=== PATIENT | female | born 1935 | race Two or more races ===

== ENCOUNTER 2017-04-13 20:46 | Emergency (ER) | payer MEDICARE, MEDICAID ==
[~2017-04-13] VITALS: Ht 30.5 cm; Wt 0.5 kg
[~2017-04-13 20:46] MED LIST: ALL300T PO; ASPI-498 OR; ATOR40TA52 PO; ESCI10TA53 PO; LOS50T PO; LOSA100T27 PO; MELO-85 PO; METO25TA5 PO; PANT1INJ3 PO; TRAM50TA2 PO
[2017-04-13] MEDS ORDERED: NOREPINEPHRINE BITARTRATE 250 ML IV ONE (20:53)
[2017-04-13] MEDS ORDERED: NOREPINEPHRINE BITARTRATE 250 ML IV SCH (21:00)
[2017-04-13] MEDS ORDERED: SODIUM BICARBONATE 8.4% INJ 50ML SYRINGE ONE ×2 (21:03→21:15)
[2017-04-13] MEDS ORDERED: EPINEPHrine HCL 1 MG/10 ML SYRG ONE ×2 (21:04→21:36)
[2017-04-13] MEDS ORDERED: AMIODARONE HCL (50 MG/ ML) 3 ML VIAL IV ONE (21:11)
[2017-04-13 21:17] LABS: Allen Test Modified; Base Excess -8.2 mmol/L (-2.0-2.0); Blood COHb 0.1 % (0.5-1.5); Blood MetHb 0.4 % (0.0-1.5); HCO3 22.3 mmol/L (22-26.0); MODE VENT - A/C; O2Hb 92.5 % (94.0-97.0); PCO2 75.6 mmHg (35.0-45.0); PCO2(T) 75.6 mmHg (35.0-45.0); PO2 104.2 mmHg (80.0-100.0); PO2(T) 104.2 mmHg (80.0-100.0); Sample Type Arterial; pH 7.087 (7.350-7.450)
[2017-04-13 21:29] VITALS: BP 116/66
[2017-04-13] MEDS ORDERED: DEXTROSE 10% 1,000 ML IV ONE (21:35)
[2017-04-13] MEDS ORDERED: AMIODARONE HCL 900 MG in DEXTROSE 500 ML IV SCH ×2 (21:38→23:06)
[2017-04-13 21:40] LABS: Hematocrit 28.1 % (36.0-46.0); Hemoglobin 9.5 g/dL (12.2-16.2); Mean Corpuscular Hemoglobin 30.4 pg (28.0-32.0); Mean Corpuscular Hgb Conc. 33.7 g/dL (32.0-36.0); Mean Corpuscular Volume 90.2 fL (80.0-100.0); Mean Platelet Volume 9.8 fL (7.4-10.4); Platelet Count (auto) 124 10^3/uL (140-450); Red Cell Distribution Width 14.9 % (11.6-16.0); White Blood Cell 7.7 10^3/uL (4.4-10.8)
[2017-04-13 21:41] LABS: Metamyelocytes % 0; Myelocytes % 0; Promyelocytes % 0; Reactive Lymphocytes 0
[2017-04-13 21:57] LABS: Albumin 2.5 g/dL (3.4-5.0); BUN/Creatinine Ratio 10.6; Bilirubin, Total 0.3 mg/dL (0.2-1.0); Calcium 7.2 mg/dL (8.5-10.1); Magnesium 2.7 mg/dL (1.6-2.6); Potassium 3.6 mmol/L (3.5-5.1); Total Protein 4.5 g/dL (6.4-8.2)
[2017-04-13 22:06] LABS: INR 1.3 (0.9-1.15); Prothrombin Time 14.2 sec (9.37-12.3)
[2017-04-13] MEDS ORDERED: DEXTROSE 10% 1,000 ML IV SCH (23:00)
[2017-04-13 23:16] LABS: Platelet Estimate Decreased
[2017-04-13 23:17] LABS: Anisocytosis Slight; Burr Cells FEW; Ovalocytes MODERATE
== END 2017-04-14 03:01 | disposition expired ==
LOC: EDBD 20:46 → ER 20:49
DX: I46.9 Cardiac arrest, cause unspecified (principal); J44.9 Chronic obstructive pulmonary disease, unspecified; I11.0 Hypertensive heart disease with heart failure; I50.9 Heart failure, unspecified; Z79.82 Long term (current) use of aspirin
CPT/HCPCS: 31500; 36415; 36600; 71010; 80053; 82805; 82962; 83735; 84484; 85007; 85027; 85610; 85730; 87070; 87205; 92950; 93005; 99291; J0171; J0282; J7040; J7060; 96365